=== PATIENT | male | born 1940 | race Caucasian/White ===

== ENCOUNTER 2016-12-30 14:15 | Inpatient (IN) | payer MEDICARE, OTHER ==
[~2016-12-30] VITALS: Ht 182.9 cm; Wt 109.7 kg
[~2016-12-30 14:15] MED LIST: VANCOMYCIN 1,500 MG in SODIUM CHLORIDE 0.9% 250 ML IV SCH
[2016-12-30] MEDS ORDERED: SODIUM CHLORIDE FLUSH 10ML SYR IVF ONE (14:30)
[2016-12-30] MEDS ORDERED: PLEASE ENTER ALLERGIES MC SCH ×2 (15:00)
[2016-12-30] MEDS ORDERED: PLEASE ENTER HEIGHT AND WEIGHT MC SCH (15:00)
[2016-12-30 15:10] LABS: ASPARTATE AMINO TRANSFERASE 167 U/L (15-37); BLOOD UREA NITROGEN 28 mg/dL (7-18)
[2016-12-30] MEDS ORDERED: SODIUM CHLORIDE 0.9%, 500ML IVBOLUS ONE (16:00)
[2016-12-30] MEDS ORDERED: CEFTRIAXONE PMX 1GM/50ML 50 ML IV ONE ×2 (16:30→22:00)
[2016-12-30] MEDS ORDERED: VANCOMYCIN 2,000 MG in SODIUM CHLORIDE 0.9% 500 ML IV ONE (17:00)
[2016-12-30] MEDS ORDERED: VANCOMYCIN PER PHARMACY MC PRN ×2 (17:00→18:00)
[2016-12-30] MEDS ORDERED: PHARMACOKINETIC CONSULTATION MC ONE ×2 (17:00→20:30)
[2016-12-30] MEDS ORDERED: TERB15CR TP (17:30)
[2016-12-30] MEDS ORDERED: METH500T7 PO (17:30)
[2016-12-30] MEDS ORDERED: CYAN1TAB39 PO (17:30)
[2016-12-30] MEDS ORDERED: SAXA5TAB PO (17:30)
[2016-12-30] MEDS ORDERED: INSULIN NPH INJ (17:30)
[2016-12-30] MEDS ORDERED: METO50TA82 PO (17:30)
[2016-12-30] MEDS ORDERED: CALC-72 PO (17:30)
[2016-12-30] MEDS ORDERED: METF10002 PO (17:30)
[2016-12-30] MEDS ORDERED: SIMV40TA3 PO (17:30)
[2016-12-30] MEDS ORDERED: DEXT15DR6 EACHEYE (17:30)
[2016-12-30] MEDS ORDERED: GABA-827 PO (17:30)
[2016-12-30] MEDS ORDERED: LOSA100T6 PO (17:30)
[2016-12-30] MEDS ORDERED: ONDANSETRON 2MG/ML, 2ML IVPush PRN (18:00)
[2016-12-30] MEDS ORDERED: PHARMACY INSTRUCTION MC PRN (20:30)
[2016-12-30] MEDS ORDERED: PHARMACOKINETIC MONITORING MC PRN (20:30)
[2016-12-30] MEDS: INSULIN DETEMIR 100 UNITS/ML, PEN SQ-INSULIN SCH (20:41)
[2016-12-30] MEDS: INSULIN REGULAR 100 UNITS/ML, 3ML VIAL SQ-INSULIN SCH (20:45)
[2016-12-30] MEDS: CALCIUM CARBONATE PO SCH (21:56)
[2016-12-30] MEDS: VITAMIN D3 PO SCH (21:56)
[2016-12-30] MEDS: [UNRECOGNIZED DRUG - OTHER] PO SCH (21:56)
[2016-12-30 22:38] VITALS: BP 111/66
[2016-12-30] MEDS: SODIUM CHLORIDE 0.9% 1,000 ML IV SCH (22:52)
[2016-12-30] MEDS: ENOXAPARIN 40 MG/0.4 ML SQ SCH (22:53)
[2016-12-30] MEDS: SIMVASTATIN 40 MG TABLET PO SCH (22:53)
[2016-12-30] MEDS: GABAPENTIN 400 MG CAPSULE PO SCH (22:53)
[2016-12-31 03:44] VITALS: BP 116/50
[2016-12-31 06:12] LABS: ASPARTATE AMINO TRANSFERASE 110 U/L (15-37); BLOOD UREA NITROGEN 26 mg/dL (7-18)
[2016-12-31] MEDS: SODIUM CHLORIDE 0.9% 1,000 ML IV SCH ×3 (06:31→22:41)
[2016-12-31] MEDS: CEFTRIAXONE PMX 1GM/50ML 50 ML IV SCH ×2 (06:31→17:42)
[2016-12-31] MEDS: INSULIN REGULAR 100 UNITS/ML, 3ML VIAL SQ-INSULIN SCH ×4 (07:00→20:20)
[2016-12-31 08:00] VITALS: BP 114/68
[2016-12-31] MEDS: INSULIN DETEMIR 100 UNITS/ML, PEN SQ-INSULIN SCH ×2 (08:00→20:28)
[2016-12-31] MEDS: CYANOCOBALAMIN PO SCH (08:26)
[2016-12-31] MEDS: CALCIUM CARBONATE PO SCH ×2 (08:26→20:54)
[2016-12-31] MEDS: [UNRECOGNIZED DRUG - OTHER] PO SCH ×2 (08:26→20:54)
[2016-12-31] MEDS: GABAPENTIN 400 MG CAPSULE PO SCH ×3 (08:26→20:58)
[2016-12-31] MEDS: FOLIC ACID PO SCH (08:26)
[2016-12-31] MEDS: [UNRECOGNIZED DRUG - OTHER] PO SCH (08:26)
[2016-12-31] MEDS: VITAMIN D3 PO SCH ×2 (08:26→20:54)
[2016-12-31] MEDS: VANCOMYCIN 2,000 MG in SODIUM CHLORIDE 0.9% 500 ML IV SCH (11:58)
[2016-12-31 15:52] VITALS: BP 130/63
[2016-12-31] MEDS: ENOXAPARIN 40 MG/0.4 ML SQ SCH (17:46)
[2016-12-31] MEDS: SIMVASTATIN 40 MG TABLET PO SCH (20:58)
[2016-12-31 21:39] VITALS: BP 123/62
[2017-01-01 01:36] VITALS: BP 117/77
[2017-01-01] MEDS: CEFTRIAXONE PMX 1GM/50ML 50 ML IV SCH ×2 (05:01→17:39)
[2017-01-01] MEDS: SODIUM CHLORIDE 0.9% 1,000 ML IV SCH ×2 (05:01→17:35)
[2017-01-01] MEDS: VANCOMYCIN 2,000 MG in SODIUM CHLORIDE 0.9% 500 ML IV SCH (05:39)
[2017-01-01] MEDS: INSULIN REGULAR 100 UNITS/ML, 3ML VIAL SQ-INSULIN SCH ×4 (07:00→21:40)
[2017-01-01 07:41] LABS: BLOOD UREA NITROGEN 16 mg/dL (7-18)
[2017-01-01 07:53] LABS: ASPARTATE AMINO TRANSFERASE 79 U/L (15-37)
[2017-01-01] MEDS: INSULIN DETEMIR 100 UNITS/ML, PEN SQ-INSULIN SCH ×2 (08:00→20:00)
[2017-01-01 08:17] VITALS: BP 162/70
[2017-01-01] MEDS: [UNRECOGNIZED DRUG - OTHER] PO SCH (08:40)
[2017-01-01] MEDS: [UNRECOGNIZED DRUG - OTHER] PO SCH ×2 (08:40→21:00)
[2017-01-01] MEDS: CALCIUM CARBONATE PO SCH ×2 (08:40→21:00)
[2017-01-01] MEDS: FOLIC ACID PO SCH (08:40)
[2017-01-01] MEDS: GABAPENTIN 400 MG CAPSULE PO SCH ×3 (08:40→21:39)
[2017-01-01] MEDS: CYANOCOBALAMIN PO SCH (08:40)
[2017-01-01] MEDS: VITAMIN D3 PO SCH ×2 (08:40→21:00)
[2017-01-01] MEDS ORDERED: FENTANYL PF 250 MCG/5ML ONE (10:47)
[2017-01-01] MEDS ORDERED: PROPOFOL 10 MG/ML, 20ML ONE (10:51)
[2017-01-01] MEDS ORDERED: ONDANSETRON 2MG/ML, 2ML ONE (10:51)
[2017-01-01] MEDS ORDERED: DEXAMETHASONE 4 MG/ML, 1ML ONE (10:51)
[2017-01-01] MEDS ORDERED: SUCCINYLCHOLINE 20 MG/ML, 10ML ONE (10:51)
[2017-01-01] MEDS ORDERED: EPHEDRINE 50 MG/ML, 1ML ONE (10:51)
[2017-01-01] MEDS ORDERED: OMNIPAQUE 350 MG/ML, 50 ML BOTTLE ONE (11:23)
[2017-01-01] MEDS ORDERED: hydrALAzine 20 MG/ML, 1ML ONE (11:56)
[2017-01-01] MEDS ORDERED: ONDANSETRON 2MG/ML, 2ML IVPush PRN (12:00)
[2017-01-01] MEDS ORDERED: HYDROmorphone 1 MG/ML, 1ML IV PRN (12:00)
[2017-01-01] MEDS ORDERED: hydrALAzine 20 MG/ML, 1ML IV PRN (12:00)
[2017-01-01] MEDS ORDERED: PROMETHAZINE 25 MG/ML, 1ML IV PRN (12:00)
[2017-01-01] MEDS ORDERED: OXYcodone 5 MG/5 ML ORAL.SOL UDC PO PRN (12:00)
[2017-01-01] MEDS ORDERED: ALBUTEROL/IPRATROPIUM 2.5MG/0.5MG, 3 ML NPPB PRN (12:00)
[2017-01-01] MEDS ORDERED: MEPERIDINE/PF 25MG/0.5ML IVPush PRN (12:00)
[2017-01-01] MEDS ORDERED: LABETALOL 5MG/ML, 20ML IV PRN (12:00)
[2017-01-01] MEDS ORDERED: FENTANYL PF 100 MCG/2ML IV PRN (12:00)
[2017-01-01] MEDS ORDERED: MIDAZOLAM 1 MG/ML, 2ML IV PRN (12:00)
[2017-01-01 13:43] VITALS: BP 157/60
[2017-01-01] MEDS: ENOXAPARIN 40 MG/0.4 ML SQ SCH (18:37)
[2017-01-01 20:00] VITALS: BP 157/68
[2017-01-01] MEDS: SIMVASTATIN 40 MG TABLET PO SCH (21:39)
[2017-01-02] MEDS: VANCOMYCIN 2,000 MG in SODIUM CHLORIDE 0.9% 500 ML IV SCH (00:22)
[2017-01-02] MEDS: SODIUM CHLORIDE 0.9% 1,000 ML IV SCH ×2 (00:22→16:22)
[2017-01-02 02:27] VITALS: BP 158/71
[2017-01-02] MEDS: CEFTRIAXONE PMX 1GM/50ML 50 ML IV SCH ×2 (05:17→17:55)
[2017-01-02 05:39] LABS: BLOOD UREA NITROGEN 14 mg/dL (7-18)
[2017-01-02 05:42] LABS: ASPARTATE AMINO TRANSFERASE 155 U/L (15-37)
[2017-01-02] MEDS ORDERED: BUPIVACAINE/PF-EPI 0.5% 1:200K ONE (06:30)
[2017-01-02] MEDS ORDERED: MIDAZOLAM 1 MG/ML, 2ML ONE (06:47)
[2017-01-02] MEDS ORDERED: FENTANYL PF 250 MCG/5ML ONE (06:47)
[2017-01-02] MEDS ORDERED: DEXAMETHASONE 4 MG/ML, 1ML ONE (06:49)
[2017-01-02] MEDS ORDERED: ROCURONIUM 10 MG/ML ONE (06:49)
[2017-01-02] MEDS ORDERED: PROPOFOL 10 MG/ML, 20ML ONE (06:49)
[2017-01-02] MEDS ORDERED: SUCCINYLCHOLINE 20 MG/ML, 10ML ONE (06:49)
[2017-01-02] MEDS ORDERED: ONDANSETRON 2MG/ML, 2ML ONE (06:49)
[2017-01-02] MEDS ORDERED: CEFAZOLIN 1,000 MG ONE (06:49)
[2017-01-02] MEDS ORDERED: EPHEDRINE 50 MG/ML, 1ML ONE (06:49)
[2017-01-02] MEDS: INSULIN REGULAR 100 UNITS/ML, 3ML VIAL SQ-INSULIN SCH ×4 (07:00→21:00)
[2017-01-02] MEDS ORDERED: BUPIVACAINE/PF-EPI 0.5% 1:200K INFIL ONE (07:11)
[2017-01-02] MEDS ORDERED: MIDAZOLAM 1 MG/ML, 2ML IV PRN (07:30)
[2017-01-02] MEDS ORDERED: hydrALAzine 20 MG/ML, 1ML IV PRN (07:30)
[2017-01-02] MEDS ORDERED: ACETAMINOPHEN 325 MG TABLET PO PRN (07:30)
[2017-01-02] MEDS ORDERED: PROMETHAZINE 25 MG/ML, 1ML IV PRN (07:30)
[2017-01-02] MEDS ORDERED: OXYcodone 5 MG/5 ML ORAL.SOL UDC PO PRN (07:30)
[2017-01-02] MEDS ORDERED: MEPERIDINE/PF 25MG/0.5ML IVPush PRN (07:30)
[2017-01-02] MEDS ORDERED: HYDROmorphone 1 MG/ML, 1ML IV PRN ×2 (07:30→09:00)
[2017-01-02] MEDS ORDERED: ONDANSETRON 2MG/ML, 2ML IVPush PRN (07:30)
[2017-01-02] MEDS ORDERED: LABETALOL 5MG/ML, 20ML IV PRN (07:30)
[2017-01-02] MEDS ORDERED: METOCLOPRAMIDE 5 MG/ML, 2ML IV PRN (07:30)
[2017-01-02] MEDS ORDERED: FENTANYL PF 100 MCG/2ML IV PRN (07:30)
[2017-01-02] MEDS: INSULIN DETEMIR 100 UNITS/ML, PEN SQ-INSULIN SCH ×2 (08:00→21:05)
[2017-01-02] MEDS ORDERED: ONDANSETRON 4 MG TABLET PO PRN (09:00)
[2017-01-02] MEDS: TERBINAFINE CRM 1%, 15GM TP SCH ×2 (09:00→21:00)
[2017-01-02] MEDS ORDERED: ONDANSETRON 2MG/ML, 2ML IV PRN (09:00)
[2017-01-02] MEDS: ARTIFICIAL TEARS OPHTH SOLN 15ML EACHEYE SCH ×3 (09:00→21:00)
[2017-01-02 09:15] VITALS: BP 159/95
[2017-01-02] MEDS: GABAPENTIN 400 MG CAPSULE PO SCH ×3 (10:05→22:13)
[2017-01-02] MEDS: LOSARTAN 50MG TABLET PO SCH (10:05)
[2017-01-02] MEDS: OXYcodone IR 5MG TABLET PO PRN ×2 (10:05→16:22)
[2017-01-02] MEDS: VITAMIN D3 PO SCH ×2 (10:06→21:00)
[2017-01-02] MEDS: FOLIC ACID PO SCH (10:06)
[2017-01-02] MEDS: [UNRECOGNIZED DRUG - OTHER] PO SCH ×2 (10:06→21:00)
[2017-01-02] MEDS: [UNRECOGNIZED DRUG - OTHER] PO SCH (10:06)
[2017-01-02] MEDS: CALCIUM CARBONATE PO SCH ×2 (10:06→21:00)
[2017-01-02] MEDS: CYANOCOBALAMIN PO SCH (10:06)
[2017-01-02] MEDS: METHOCARBAMOL 500 MG TABLET PO SCH ×3 (11:41→21:16)
[2017-01-02 13:42] VITALS: BP 130/84
[2017-01-02 15:00] VITALS: BP 151/66
[2017-01-02] MEDS ORDERED: POLYETHYLENE GLYCOL 17 GM PACKET PO PRN (15:00)
[2017-01-02] MEDS: metFORMIN 500 MG TABLET PO SCH (16:22)
[2017-01-02] MEDS: DOCUSATE 100 MG CAPSULE PO PRN (16:22)
[2017-01-02] MEDS: METOPROLOL TARTRATE 50 MG TABLET PO SCH (17:48)
[2017-01-02] MEDS: ENOXAPARIN 40 MG/0.4 ML SQ SCH (17:49)
[2017-01-02 20:00] VITALS: BP 128/72
[2017-01-02] MEDS: SIMVASTATIN 40 MG TABLET PO SCH (21:16)
[2017-01-03 02:00] VITALS: BP 148/72
[2017-01-03 05:24] LABS: BLOOD UREA NITROGEN 15 mg/dL (7-18)
[2017-01-03 05:28] LABS: ASPARTATE AMINO TRANSFERASE 223 U/L (15-37)
[2017-01-03] MEDS: OXYcodone IR 5MG TABLET PO PRN (05:52)
[2017-01-03] MEDS: METHOCARBAMOL 500 MG TABLET PO SCH ×4 (05:52→20:17)
[2017-01-03] MEDS: METOPROLOL TARTRATE 50 MG TABLET PO SCH ×2 (05:53→18:10)
[2017-01-03] MEDS: CEFTRIAXONE PMX 1GM/50ML 50 ML IV SCH ×2 (05:53→18:10)
[2017-01-03] MEDS: ARTIFICIAL TEARS OPHTH SOLN 15ML EACHEYE SCH ×4 (05:53→20:16)
[2017-01-03 07:00] VITALS: BP 132/69
[2017-01-03] MEDS: INSULIN DETEMIR 100 UNITS/ML, PEN SQ-INSULIN SCH ×2 (10:08→20:16)
[2017-01-03] MEDS: INSULIN REGULAR 100 UNITS/ML, 3ML VIAL SQ-INSULIN SCH ×4 (10:08→20:18)
[2017-01-03] MEDS: GABAPENTIN 400 MG CAPSULE PO SCH ×3 (10:08→20:17)
[2017-01-03] MEDS: DOCUSATE 100 MG CAPSULE PO PRN (10:08)
[2017-01-03] MEDS: metFORMIN 500 MG TABLET PO SCH ×2 (10:08→18:09)
[2017-01-03] MEDS: LOSARTAN 50MG TABLET PO SCH (10:08)
[2017-01-03] MEDS: [UNRECOGNIZED DRUG - OTHER] PO SCH (10:09)
[2017-01-03] MEDS: VITAMIN D3 PO SCH ×2 (10:09→20:17)
[2017-01-03] MEDS: CYANOCOBALAMIN PO SCH (10:09)
[2017-01-03] MEDS: FOLIC ACID PO SCH (10:09)
[2017-01-03] MEDS: [UNRECOGNIZED DRUG - OTHER] PO SCH ×2 (10:09→20:17)
[2017-01-03] MEDS: TERBINAFINE CRM 1%, 15GM TP SCH ×2 (10:09→20:25)
[2017-01-03] MEDS: CALCIUM CARBONATE PO SCH ×2 (10:09→20:17)
[2017-01-03] MEDS: SAXAGLIPTIN 5 MG HOMEMEDPO SCH (10:09)
[2017-01-03 14:01] VITALS: BP 127/70
[2017-01-03] MEDS: ENOXAPARIN 40 MG/0.4 ML SQ SCH (18:10)
[2017-01-03 20:00] VITALS: BP 124/69
[2017-01-03] MEDS: SIMVASTATIN 40 MG TABLET PO SCH (20:17)
[2017-01-04 02:00] VITALS: BP 130/69
[2017-01-04] MEDS: METHOCARBAMOL 500 MG TABLET PO SCH ×2 (05:16→10:24)
[2017-01-04] MEDS: CEFTRIAXONE PMX 1GM/50ML 50 ML IV SCH (05:17)
[2017-01-04] MEDS: ARTIFICIAL TEARS OPHTH SOLN 15ML EACHEYE SCH ×2 (05:17→10:27)
[2017-01-04] MEDS: METOPROLOL TARTRATE 50 MG TABLET PO SCH (05:17)
[2017-01-04 05:42] LABS: BLOOD UREA NITROGEN 18 mg/dL (7-18)
[2017-01-04 05:49] LABS: ASPARTATE AMINO TRANSFERASE 149 U/L (15-37)
[2017-01-04] MEDS: INSULIN REGULAR 100 UNITS/ML, 3ML VIAL SQ-INSULIN SCH ×2 (08:45→11:54)
[2017-01-04] MEDS: metFORMIN 500 MG TABLET PO SCH (08:51)
[2017-01-04] MEDS: INSULIN DETEMIR 100 UNITS/ML, PEN SQ-INSULIN SCH (08:52)
[2017-01-04] MEDS: SAXAGLIPTIN 5 MG HOMEMEDPO SCH (10:03)
[2017-01-04] MEDS: FOLIC ACID PO SCH (10:04)
[2017-01-04] MEDS: [UNRECOGNIZED DRUG - OTHER] PO SCH (10:04)
[2017-01-04] MEDS: [UNRECOGNIZED DRUG - OTHER] PO SCH (10:04)
[2017-01-04] MEDS: CALCIUM CARBONATE PO SCH (10:04)
[2017-01-04] MEDS: VITAMIN D3 PO SCH (10:04)
[2017-01-04] MEDS: CYANOCOBALAMIN PO SCH (10:04)
[2017-01-04] MEDS: GABAPENTIN 400 MG CAPSULE PO SCH (10:24)
[2017-01-04] MEDS: LOSARTAN 50MG TABLET PO SCH (10:27)
[2017-01-04] MEDS: TERBINAFINE CRM 1%, 15GM TP SCH ×2 (10:27→10:31)
[2017-01-04 10:28] VITALS: BP 133/67
[2017-01-04] MEDS ORDERED: CEFD300C37 PO (10:42)
[2017-01-04] MEDS ORDERED: OXYC5TAB3 PO (10:42)
[2017-01-04] MEDS ORDERED: POLY17PO5 PO (10:43)
== END 2017-01-04 12:23 | disposition home or self-care (01) | DRG 853 ==
LOC: ED 17:08 → EDIP 17:09 → ED 17:33 → 4WST 19:28 → 4NOR 01-04 07:44
PROVIDERS: ADMIT Hospitalist; ATTEND Hospitalist
PROC: 0FC98ZZ Extirpation of Matter from Common Bile Duct, Via Natural or Artificial Opening Endoscopic (ICD-10-PCS; 2017-01-01)
PROC: 0FT44ZZ Resection of Gallbladder, Percutaneous Endoscopic Approach (ICD-10-PCS; principal; 2017-01-02 07:00)
DX: A41.51 Sepsis due to Escherichia coli [E. coli] (principal); K85.10 Biliary acute pancreatitis without necrosis or infection; N17.9 Acute kidney failure, unspecified; K80.51 Calculus of bile duct without cholangitis or cholecystitis with obstruction; B96.20 Unspecified Escherichia coli [E. coli] as the cause of diseases classified elsewhere; D69.6 Thrombocytopenia, unspecified; E66.9 Obesity, unspecified; E11.40 Type 2 diabetes mellitus with diabetic neuropathy, unspecified; E78.5 Hyperlipidemia, unspecified; I10 Essential (primary) hypertension; Z79.899 Other long term (current) drug therapy; Z68.32 Body mass index [BMI] 32.0-32.9, adult
CPT/HCPCS: 36415; 71010; 74181; 74328; 76700; 80053; 80061; 81001; 82247; 82248; 82962; 83036; 83605; 83690; 83735; 84100; 84145; 85025; 85610; 85651; 85730; 87040; 87086; 87186; 88304; 93005; 96361; 96374; J0690; J0696; J1100; J1650; J1815; J2250; J2405; J2704; J3010; J3370; Q9967; C1769; J0330; J0360; J7030; J7040